=== PATIENT | female | born 1970 | race Caucasian/White ===

== ENCOUNTER 2019-04-25 12:43 | Inpatient (IN) ==
[2019-04-25] MEDS ORDERED: Mag Hydrox/Al Hydrox/Simeth 30 ML UDC PO PRN (17:41)
[2019-04-25] MEDS ORDERED: Acetaminophen 325 MG TABLET PO PRN (17:41)
[2019-04-25] MEDS ORDERED: Ondansetron ODT 4 MG TAB.RAPDIS SL PRN (17:42)
[2019-04-25] MEDS ORDERED: *HR* Dextrose 50 % in Water (Syg) 50 ML SYRINGE IVP PRN (17:49)
[2019-04-25] MEDS ORDERED: Dextrose Gel 15 GM/37.5 ML TUBE PO PRN ×2 (17:49)
[2019-04-25] MEDS ORDERED: D5% in Water 1,000 ML IVC PRN (17:49)
[2019-04-25] MEDS: Insulin LISPRO 300 UNITS/3 ML VIAL SQ SCH (20:48)
[2019-04-25] MEDS: Melatonin 3 MG TABLET PO PRN (20:50)
[2019-04-25] MEDS ORDERED: Insulin DETEMIR 100 UNIT/ML per UNIT SQ ONE (21:00)
[2019-04-26] MEDS: *HR* Enoxaparin 40 MG/0.4 ML SYRINGE SQ SCH (05:16)
[2019-04-26 05:30] LABS: Basophils # 0.1 K/mcL (0.0-0.2); Basophils % 0.6 %; Eosinophils # 0.2 K/mcL (0.0-0.6); Eosinophils % 1.9 %; Immature Granulocytes % 0.5 % (0-4); Lymphocytes # 2.1 K/mcL (0.6-4.6); Mean Corpuscular HGB Conc 34.8 g/dL (31.6-35.5); Mean Corpuscular Hemoglobin 29.9 pg (28.0-33.3); Mean Platelet Volume 11.2 fL (9.4-12.4); Monocytes # 0.8 K/mcL (0.0-1.3); Monocytes % 9.2 %; Neutrophils # 5.6 K/mcL (1.6-8.9); Platelet Count 196 K/mcL (140-400); Red Blood Count 5.35 M/mcL (3.82-4.97); Segmented Neutrophils % 63.8 %; White Blood Count 8.8 K/mcL (4.3-11.1)
[2019-04-26 05:45] LABS: Alanine Aminotransferase 51 Units/L (7-52); Albumin/Globulin Ratio 1.7 (1.1-2.2); Alkaline Phosphatase 95 Units/L (34-104); Aspartate Amino Transferase 28 Units/L (13-39); BUN/Creatinine Ratio 24 (6-26); Bilirubin,Total 0.7 mg/dL (0.3-1.0); Blood Urea Nitrogen 19 mg/dL (6-20); Calcium 9.6 mg/dL (8.6-10.3); Carbon Dioxide 28 mEq/L (23-29); Chloride 102 mEq/L (98-107); Globulin 2.3 g/dL (2.4-3.5); Glucose 184 mg/dL (70-105); Magnesium 1.8 mg/dL (1.6-2.6); Osmolality,Calculated 285 (280-300); Potassium 4.3 mEq/L (3.5-5.1); Sodium 134 mEq/L (136-145); Total Protein 6.3 g/dL (6.4-8.9); eGFR For African Americans > 60 (> 60); eGFR For Non-African Americans > 60 (> 60)
[2019-04-26] MEDS: *HR* Metformin 500 MG TABLET PO SCH ×2 (07:31→17:06)
[2019-04-26] MEDS: Aspirin Enteric Coated 81 MG Tablet PO SCH (07:31)
[2019-04-26] MEDS: Insulin LISPRO 300 UNITS/3 ML VIAL SQ SCH ×4 (07:32→21:21)
[2019-04-26 19:20] LABS: Bilirubin,Urine Negative (Negative); Blood,Urine Negative (Negative); Clarity,Urine Clear (Clear); Color,Urine Yellow (Yellow); Glucose,Urine (UA) 100 mg/dL (Normal); Ketones,Urine Negative (Negative); Leukocyte Esterase,Urine Trace (Negative); Nitrite,Urine Negative (Negative); PH,Urine 5.5 pH Units (5.0-8.0); Protein,Urine 30 mg/dL (Neg-Trace); Specific Gravity,Urine >= 1.030 (1.010-1.025); Urobilinogen,Urine Normal (Normal)
[2019-04-26 19:28] LABS: Bacteria,Urine Many per hpf (None-Few); RBC,Urine 0-3 per hpf (0-3); Squamous Epithelial Cell,Urine Many per lpf (None-Few)
[2019-04-26] MEDS: Insulin DETEMIR 100 UNIT/ML X5UNITS SQ SCH (21:20)
[2019-04-26] MEDS: Melatonin 3 MG TABLET PO PRN (21:20)
[2019-04-27] MEDS: *HR* Enoxaparin 40 MG/0.4 ML SYRINGE SQ SCH (05:31)
[2019-04-27] MEDS: Insulin LISPRO 300 UNITS/3 ML VIAL SQ SCH ×4 (08:11→21:35)
[2019-04-27] MEDS: Cholecalciferol (D-3) 1,000 UNIT (25MCG) TABLET PO SCH (08:11)
[2019-04-27] MEDS: *HR* Metformin 500 MG TABLET PO SCH ×2 (08:11→16:40)
[2019-04-27] MEDS: Aspirin Enteric Coated 81 MG Tablet PO SCH (08:11)
[2019-04-27] MEDS: Melatonin 3 MG TABLET PO PRN (21:33)
[2019-04-27] MEDS: Insulin DETEMIR 100 UNIT/ML X5UNITS SQ SCH (21:33)
[2019-04-28] MEDS: *HR* Enoxaparin 40 MG/0.4 ML SYRINGE SQ SCH (05:23)
[2019-04-28] MEDS: Cholecalciferol (D-3) 1,000 UNIT (25MCG) TABLET PO SCH (08:00)
[2019-04-28] MEDS: Insulin LISPRO 300 UNITS/3 ML VIAL SQ SCH ×4 (08:00→22:01)
[2019-04-28] MEDS: Aspirin Enteric Coated 81 MG Tablet PO SCH (08:00)
[2019-04-28] MEDS: *HR* Metformin 500 MG TABLET PO SCH ×2 (08:01→16:37)
[2019-04-28] MEDS: Melatonin 3 MG TABLET PO PRN (22:12)
[2019-04-28] MEDS: Insulin DETEMIR 100 UNIT/ML X5UNITS SQ SCH (22:13)
[2019-04-29] MEDS: *HR* Enoxaparin 40 MG/0.4 ML SYRINGE SQ SCH (05:25)
[2019-04-29] MEDS: *HR* Metformin 500 MG TABLET PO SCH ×2 (21:05→21:06)
[2019-04-29] MEDS: Cholecalciferol (D-3) 1,000 UNIT (25MCG) TABLET PO SCH (21:05)
[2019-04-29] MEDS: Insulin LISPRO 300 UNITS/3 ML VIAL SQ SCH ×3 (21:05→21:08)
[2019-04-29] MEDS: Aspirin Enteric Coated 81 MG Tablet PO SCH (21:05)
[2019-04-29] MEDS: Melatonin 3 MG TABLET PO PRN (21:14)
[2019-04-29] MEDS: Insulin DETEMIR 100 UNIT/ML X5UNITS SQ SCH (21:15)
[2019-04-30] MEDS: *HR* Enoxaparin 40 MG/0.4 ML SYRINGE SQ SCH (06:44)
[2019-04-30] MEDS: Aspirin Enteric Coated 81 MG Tablet PO SCH (08:33)
[2019-04-30] MEDS: Cholecalciferol (D-3) 1,000 UNIT (25MCG) TABLET PO SCH (08:33)
[2019-04-30] MEDS: *HR* Metformin 500 MG TABLET PO SCH ×2 (08:33→16:54)
[2019-04-30] MEDS: Insulin LISPRO 300 UNITS/3 ML VIAL SQ SCH ×4 (08:33→20:59)
[2019-04-30] MEDS: Insulin DETEMIR 100 UNIT/ML X5UNITS SQ SCH (21:00)
[2019-04-30] MEDS: Melatonin 3 MG TABLET PO PRN (21:00)
[2019-05-01] MEDS: *HR* Enoxaparin 40 MG/0.4 ML SYRINGE SQ SCH (06:28)
[2019-05-01] MEDS: *HR* Metformin 500 MG TABLET PO SCH ×2 (08:06→17:13)
[2019-05-01] MEDS: Aspirin Enteric Coated 81 MG Tablet PO SCH (08:06)
[2019-05-01] MEDS: Insulin LISPRO 300 UNITS/3 ML VIAL SQ SCH ×4 (08:06→21:08)
[2019-05-01] MEDS: Cholecalciferol (D-3) 1,000 UNIT (25MCG) TABLET PO SCH (08:06)
[2019-05-01] MEDS: Insulin DETEMIR 100 UNIT/ML X5UNITS SQ SCH (21:09)
[2019-05-02] MEDS: *HR* Enoxaparin 40 MG/0.4 ML SYRINGE SQ SCH (05:40)
[2019-05-02 05:52] LABS: Hemoglobin 14.6 g/dL (11.5-15.4); Mean Corpuscular HGB Conc 34.8 g/dL (31.6-35.5); Mean Corpuscular Hemoglobin 29.3 pg (28.0-33.3); Mean Corpuscular Volume 84.3 fL (83.0-100.0); Mean Platelet Volume 11.3 fL (9.4-12.4); Platelet Count 198 K/mcL (140-400); Red Blood Count 4.98 M/mcL (3.82-4.97); Red Cell Distribution Width 12.6 % (11.5-14.5); White Blood Count 7.3 K/mcL (4.3-11.1)
[2019-05-02 06:09] LABS: BUN/Creatinine Ratio 16 (6-26); Blood Urea Nitrogen 9 mg/dL (6-20); Calcium 9.2 mg/dL (8.6-10.3); Carbon Dioxide 28 mEq/L (23-29); Chloride 104 mEq/L (98-107); Glucose 142 mg/dL (70-105); Magnesium 1.6 mg/dL (1.6-2.6); Osmolality,Calculated 283 (280-300); Potassium 3.9 mEq/L (3.5-5.1); Sodium 136 mEq/L (136-145); eGFR For African Americans > 60 (> 60); eGFR For Non-African Americans > 60 (> 60)
[2019-05-02] MEDS: *HR* Metformin 500 MG TABLET PO SCH ×2 (08:08→17:28)
[2019-05-02] MEDS: Cholecalciferol (D-3) 1,000 UNIT (25MCG) TABLET PO SCH (08:08)
[2019-05-02] MEDS: Insulin LISPRO 300 UNITS/3 ML VIAL SQ SCH ×4 (08:08→21:09)
[2019-05-02] MEDS: Aspirin Enteric Coated 81 MG Tablet PO SCH (08:08)
[2019-05-02] MEDS: Insulin DETEMIR 100 UNIT/ML X5UNITS SQ SCH (21:13)
[2019-05-03] MEDS: *HR* Enoxaparin 40 MG/0.4 ML SYRINGE SQ SCH (06:19)
[2019-05-03] MEDS: Cholecalciferol (D-3) 1,000 UNIT (25MCG) TABLET PO SCH (07:33)
[2019-05-03] MEDS: Aspirin Enteric Coated 81 MG Tablet PO SCH (07:34)
[2019-05-03] MEDS: *HR* Metformin 500 MG TABLET PO SCH ×2 (07:34→18:29)
[2019-05-03] MEDS: Insulin LISPRO 300 UNITS/3 ML VIAL SQ SCH ×4 (07:34→20:23)
[2019-05-03] MEDS: Insulin DETEMIR 100 UNIT/ML X5UNITS SQ SCH (19:52)
[2019-05-04] MEDS: *HR* Enoxaparin 40 MG/0.4 ML SYRINGE SQ SCH (05:25)
[2019-05-04] MEDS: Insulin LISPRO 300 UNITS/3 ML VIAL SQ SCH ×4 (08:01→20:53)
[2019-05-04] MEDS: Aspirin Enteric Coated 81 MG Tablet PO SCH (08:02)
[2019-05-04] MEDS: Cholecalciferol (D-3) 1,000 UNIT (25MCG) TABLET PO SCH (08:02)
[2019-05-04] MEDS: *HR* Metformin 500 MG TABLET PO SCH ×2 (08:02→18:06)
[2019-05-04] MEDS: Insulin DETEMIR 100 UNIT/ML X5UNITS SQ SCH (20:55)
[2019-05-05] MEDS: *HR* Enoxaparin 40 MG/0.4 ML SYRINGE SQ SCH (05:56)
[2019-05-05 07:49] VITALS: BP 138/83
[2019-05-05] MEDS: *HR* Metformin 500 MG TABLET PO SCH (08:58)
[2019-05-05] MEDS: Cholecalciferol (D-3) 1,000 UNIT (25MCG) TABLET PO SCH (08:58)
[2019-05-05] MEDS: Aspirin Enteric Coated 81 MG Tablet PO SCH (08:58)
[2019-05-05] MEDS: Insulin LISPRO 300 UNITS/3 ML VIAL SQ SCH (08:59)
== END 2019-05-05 11:04 | disposition home health service (06) | DRG 57 ==
LOC: INPGRE 16:50